=== PATIENT | female | born 1930 | race Caucasian/White ===

== ENCOUNTER 2016-06-13 14:38 | Emergency (ER) | payer OTHER ==
[~2016-06-13] VITALS: Ht 157.5 cm; Wt 59.0 kg
[~2016-06-13 14:38] MED LIST: LO-DOSE ASPIRIN81 M1 PO; MAALOX ADVANCE1 EACH PO; MACROBID100 MG PO; METAMUCIL FIBE3.4 GM PO; NORCO 5/3251 TABLET PO; NORVASC10 MG PO; SINEMET 25-1001 EACH PO; TUMS500 MG PO; VITAMIN B-122000 MC1 PO; VITAMIN B12 100MCG PO; VITAMIN D31000 UNI2 PO; ZANTAC150 MG PO; ZESTRIL20 MG PO; ZOCOR20 MG PO; ZOFRAN4 MG PO
[2016-06-13 15:55] LABS: ADD MIUA? YES; BILIRUBIN NEGATIVE; BLOOD NEGATIVE; COLOR YELLOW ((YELLOW)); GLUCOSE (STRIP) NEGATIVE; KETONES 20; LEUKOCYTES LARGE; NITRITE NEGATIVE; PROTEIN (STRIP) NEGATIVE; SPECIFIC GRAVITY 1.017 (1.000-1.030); UROBILINOGEN 0.2 MG/DL (0.2-1.0)
[2016-06-13 15:57] LABS: HEMATOCRIT 38.6 % (36.0-46.0); MCH 30.4 PG (29.0-34.0); MCHC 32.1 G/DL (30.0-36.0); MCV 94.6 FL (83-99); MEAN PLAT.VOLUME 11.7 uM^3 (9.5-12.4); PLATELET COUNT 187 K/uL (156-360); RBC DIS.WIDTH-SD 46.3 % (39-53); RED BLOOD COUNT 4.08 M/uL (3.80-5.20); WHITE BLOOD COUNT 10.3 K/uL (4.1-10.2)
[2016-06-13 16:09] LABS: CHLORIDE 106 mEq/L (99-109); POTASSIUM 4.6 mEq/L (3.7-5.4); SODIUM 141 mEq/L (136-147)
[2016-06-13 16:11] LABS: GLUCOSE 109 mg/dL (70-99)
[2016-06-13 16:12] LABS: AMORPHOUS URATES CRYSTALS 1+; BACTERIA RARE /HPF; CASTS PRESENT /LPF; CRYSTALS PRESENT; EPITHELIAL CELLS RARE /HPF; FINE GRANULAR CASTS 0-5 /LPF; HYALINE CASTS 0-5 /LPF; MUCUS 2+ /LPF; RED BLOOD CELLS 0-5 /HPF (0-5); UCUL ADDED? NO; WHITE BLOOD CELLS 30-40 /HPF (0-5)
[2016-06-13 16:13] LABS: ANION GAP 9 MEQ/L (2-14); TOTAL BILIRUBIN 0.4 mg/dL (0.0-1.0)
[2016-06-13 16:15] LABS: ALKALINE PHOSPHATASE 61 IU/L (3-129); GFR ESTIMATE (CALCULATED) 45 mL/min/
[2016-06-13 16:16] LABS: UREA NITROGEN (BUN) 33 mg/dL (9-23)
[2016-06-13 16:19] LABS: LIPASE 30 U/L (1.0-51.0)
[2016-06-13] MEDS ORDERED: ATARAX,VISTARIL25 MG PO (16:32)
[2016-06-13] MEDS ORDERED: ZOFRAN ODT4 MG PO (16:32)
[2016-06-13 16:54] VITALS: BP 165/71
== END 2016-06-13 16:54 | disposition home or self-care (01) ==
LOC: EME 14:38
PROVIDERS: Physician Assistant
DX: R11.2 Nausea with vomiting, unspecified (principal); E78.5 Hyperlipidemia, unspecified; I10 Essential (primary) hypertension; K21.9 Gastro-esophageal reflux disease without esophagitis; G20 Parkinson's disease; Z87.440 Personal history of urinary (tract) infections; Z79.82 Long term (current) use of aspirin
CPT/HCPCS: 80053; 81003; 83690; 85027; 87086; 99281; 99284; Q0177

== ENCOUNTER 2016-10-07 08:04 | Day surgery (SDC) | payer OTHER ==
[~2016-10-07] VITALS: Ht 157.5 cm; Wt 59.4 kg
[~2016-10-07 08:04] MED LIST changes: +ATARAX,VISTARIL25 MG PO; +TRIMETHOPRIM100 MG PO; +ZOFRAN ODT4 MG PO
[2016-10-07 08:55] VITALS: BP 186/82
[2016-10-07 09:05] LABS: CHLORIDE 107 mEq/L (99-109); POTASSIUM 3.9 mEq/L (3.7-5.4); SODIUM 140 mEq/L (136-147)
[2016-10-07 09:06] LABS: GLUCOSE 95 mg/dL (70-99)
[2016-10-07 09:08] LABS: ANION GAP 9 MEQ/L (2-14)
[2016-10-07 09:10] LABS: GFR ESTIMATE (CALCULATED) 50 mL/min/
[2016-10-07 09:11] LABS: UREA NITROGEN (BUN) 26 mg/dL (9-23)
[2016-10-07] MEDS ORDERED: NORCO 5/3251 TABLET PO (12:18)
[2016-10-07 12:48] VITALS: BP 166/61
[2016-10-07 13:32] VITALS: BP 165/55
== END 2016-10-07 14:02 | disposition home or self-care (01) ==
LOC: SDC 08:04
PROVIDERS: Surgery
PROC: 0YU60JZ Supplement Left Inguinal Region with Synthetic Substitute, Open Approach (ICD-10-PCS; principal; 2016-10-07)
DX: K40.90 Unilateral inguinal hernia, without obstruction or gangrene, not specified as recurrent (principal); G20 Parkinson's disease; I10 Essential (primary) hypertension; E78.5 Hyperlipidemia, unspecified; N30.20 Other chronic cystitis without hematuria; Z79.82 Long term (current) use of aspirin; Z80.0 Family history of malignant neoplasm of digestive organs; Z80.1 Family history of malignant neoplasm of trachea, bronchus and lung
CPT/HCPCS: 80048; 93005; C1781; J0690; J1100; J2405; J2710; J3010; S0020

== ENCOUNTER 2017-11-07 14:54 | Emergency (ER) | payer OTHER ==
[~2017-11-07] VITALS: Ht 157.5 cm; Wt 60.7 kg
[2017-11-07 16:40] LABS: HEMATOCRIT 38.2 % (36.0-46.0); HEMOGLOBIN 12.8 G/DL (11.9-15.5); MCH 31.7 PG (29.0-34.0); MCHC 33.5 G/DL (30.0-36.0); MCV 94.6 FL (83-99); PLATELET COUNT 196 K/uL (156-360); RBC DIS.WIDTH-CV 14.1 % (11.8-14.6); RBC DIS.WIDTH-SD 49.4 % (39-53); RED BLOOD COUNT 4.04 M/uL (3.80-5.20); WHITE BLOOD COUNT 16.5 K/uL (4.1-10.2)
[2017-11-07 16:48] LABS: ALBUMIN 4.1 g/dL (3.2-4.8); CHLORIDE 105 mEq/L (99-109); POTASSIUM 4.4 mEq/L (3.7-5.4); SODIUM 141 mEq/L (136-147)
[2017-11-07 16:51] LABS: GLUCOSE 114 mg/dL (70-99); TOTAL PROTEIN 7.1 g/dL (6.4-8.3)
[2017-11-07 16:53] LABS: TOTAL BILIRUBIN 0.3 mg/dL (0.0-1.0)
[2017-11-07 16:54] LABS: ALKALINE PHOSPHATASE 66 IU/L (3-129); CREATININE 1.3 mg/dL (0.6-1.3); GFR ESTIMATE (CALCULATED) 41 mL/min/
[2017-11-07 16:55] LABS: UREA NITROGEN (BUN) 36 mg/dL (9-23)
[2017-11-07 16:56] LABS: AST (GOT) 21 IU/L (2-34)
[2017-11-07 16:57] LABS: ALT (GPT) 13 IU/L (3-49)
[2017-11-07 16:58] LABS: LIPASE 39 U/L (1.0-51.0)
[2017-11-07 19:14] LABS: APPEARANCE CLEAR ((CLEAR)); BILIRUBIN NEGATIVE; BLOOD NEGATIVE; COLOR YELLOW ((YELLOW)); GLUCOSE (STRIP) NEGATIVE; KETONES 5; LEUKOCYTES SMALL; NITRITE NEGATIVE; PROTEIN (STRIP) NEGATIVE; SPECIFIC GRAVITY 1.026 (1.000-1.030); UROBILINOGEN 0.2 MG/DL (0.2-1.0)
[2017-11-07 19:17] LABS: BACTERIA NONE SEEN /HPF; EPITHELIAL CELLS RARE /HPF; MUCUS TRACE /LPF; RED BLOOD CELLS 0-5 /HPF (0-5); UCUL ADDED? NO; WHITE BLOOD CELLS 0-5 /HPF (0-5)
[2017-11-07] MEDS ORDERED: ZOFRAN4 MG PO (19:42)
[2017-11-07 20:12] VITALS: BP 131/64
== END 2017-11-07 20:13 | disposition home or self-care (01) ==
LOC: EME 14:54
PROVIDERS: Nurse Practitioner Family
DX: K52.9 Noninfective gastroenteritis and colitis, unspecified (principal); K57.30 Diverticulosis of large intestine without perforation or abscess without bleeding; I10 Essential (primary) hypertension; K21.9 Gastro-esophageal reflux disease without esophagitis; E78.5 Hyperlipidemia, unspecified; G20 Parkinson's disease; Z79.82 Long term (current) use of aspirin; Z87.440 Personal history of urinary (tract) infections; Z90.49 Acquired absence of other specified parts of digestive tract
CPT/HCPCS: 74177; 80053; 81003; 83690; 85027; 99281; 99285; J2405; J7030